=== PATIENT | female | born 1980 | race Caucasian/White ===

== ENCOUNTER 2020-12-17 18:31 | Emergency (ER) | payer OTHER ==
[~2020-12-17] VITALS: Ht 160 cm; Wt 118.2 kg
[2020-12-17] MEDS ORDERED: DICL75TA5 PO (18:38)
[2020-12-17] MEDS ORDERED: BUPIVACAINE HCL/PF 0.5% 10 ML VIAL PERC ONE (19:15)
[2020-12-17] MEDS ORDERED: POVIDONE-IODINE 10% 15 ML SOLUTION UD TP ONE (19:15)
[2020-12-17] MEDS ORDERED: LIDOCAINE 1% 10 ML VIAL PERC ONE (19:15)
[2020-12-17 20:20] VITALS: BP 129/72
== END 2020-12-17 20:42 | disposition home or self-care (01) ==
LOC: EMS 18:33
DX: S90.211A Contusion of right great toe with damage to nail, initial encounter (principal); W19.XXXA Unspecified fall, initial encounter; Y93.89 Activity, other specified; Y92.89 Other specified places as the place of occurrence of the external cause; Y99.8 Other external cause status
CPT/HCPCS: 11730; 73630; 99284; J3490 ×2